=== PATIENT | male | born 1970 | race Caucasian/White ===

== ENCOUNTER 2017-03-04 14:41 | Emergency (ER) | payer OTHER ==
[~2017-03-04] VITALS: Ht 172.7 cm; Wt 93.5 kg
[2017-03-04 14:43] VITALS: Ht 172.7 cm; Wt 93.5 kg
[2017-03-04] MEDS ORDERED: KETOROLAC 30 MG INJ IV STA (15:16)
[2017-03-04] MEDS ORDERED: ONDANSETRON 4 MG INJ IV STA (15:16)
[2017-03-04] MEDS ORDERED: SOD CHLORIDE 0.9% 1,000 ML IV STA (15:16)
[2017-03-04 16:00] LABS: ADD SCAN DIFF NO
[2017-03-04 16:06] LABS: BASOPHIL # 0.1 10^3/ul (0.0-0.1); BASOPHILS % 0.7 % (0.0-2.0); EOSINOPHILS # 0.1 10^3/ul (0.0-0.5); EOSINOPHILS % 2.1 % (0.0-7.0); HEMATOCRIT 44.1 % (42.0-52.0); LYMPHOCYTES # 2.1 10^3/ul (0.8-2.9); LYMPHOCYTES % 31.2 % (15.0-51.0); MEAN CORPUSCULAR HEMOGLOBIN 29.9 pg (29.0-33.0); MEAN CORPUSCULAR VOLUME 87.8 fl (82.0-101.0); MEAN PLATELET VOLUME 10.4 fl (7.4-10.4); MONOCYTE # 0.6 10^3/ul (0.3-0.9); NEUTROPHIL # 3.9 10^3/ul (1.6-7.5); NEUTROPHILS % 56.9 % (39.0-77.0); PLATELET COUNT 267 10^3/UL (140-415); RED BLOOD COUNT 5.02 10^6/ul (4.70-6.10); RED CELL DISTRIBUTION WIDTH 12.6 % (11.5-14.5); WHITE BLOOD COUNT 6.8 10^3/ul (4.8-10.8)
[2017-03-04 16:26] LABS: ALBUMIN 4.3 g/dl (3.3-4.9); ALBUMIN/GLOBULIN RATIO 1.22; BILIRUBIN,INDIRECT 0.2 mg/dl (0-1.1); BILIRUBIN,TOTAL 0.2 mg/dl (0.2-1.3); CALCIUM 8.9 mg/dl (8.4-10.2); CREATININE 0.74 mg/dl (0.61-1.24); POTASSIUM 3.9 mmol/L (3.5-5.1); TOTAL PROTEIN 7.8 g/dl (6.1-8.1)
[2017-03-04 16:31] LABS: ADD UMIC NO; URINE BILIRUBIN (Dip) NEGATIVE (NEGATIVE); URINE BLOOD (Dip) NEGATIVE (NEGATIVE); URINE COLOR LT. YELLOW (YELLOW); URINE GLUCOSE (Dip) NEGATIVE (NEGATIVE); URINE KETONES (Dip) NEGATIVE (NEGATIVE); URINE LEUKOCYTE ESTERASE (Dip) NEGATIVE (NEGATIVE); URINE NITRITE (Dip) NEGATIVE (NEGATIVE); URINE TOTAL PROTEIN (Dip) NEGATIVE (NEGATIVE); URINE UROBILINOGEN (Dip) 0.2 E.U./dL (0.1-1.0)
--- NOTE | 2017-03-04 16:43 | ERD ---
ER Documentation Chief Complaint Date/Time DATE: 03/04/17 TIME: 16:42 Chief Complaint EPIGASTRIC PAIN,VOMITING,DIARRHEA HPI 46-year-old male presents with epigastric pain that he has had for 3 days. No change with food. He does state he has a problem with alcohol but last drink on Thursday. Admits to nausea vomiting or diarrhea. He is however tolerating oral intake. Denies any dysuria, hematuria, increased urinary frequency, or flank pain. No fever. ROS All systems reviewed and are negative except as per history of present illness. Allergies Allergies: Coded Allergies: No Known Drug Allergy (Verified Allergy, Unknown, 03/04/17) PMhx/Soc Medical and Surgical Hx: pt denies Medical Hx, pt denies Surgical Hx Hx Alcohol Use: Yes Hx Substance Use: No Hx Tobacco Use: No Smoking Status: Never smoker FmHx Family History: No diabetes Physical Exam Vitals Vital Signs Date Time Temp Pulse Resp B/P Pulse Ox O2 Delivery O2 Flow Rate FiO2 03/04/17 14:43 97.9 80 18 133/85 98 Physical Exam General: well developed, well nourished, alert, nontoxic, no distress Head: normocephalic, atraumatic Eyes: PERRL, normal conjunctiva Neck: Supple, nontender, no lymphadenopathy, no midline tenderness Respiratory: Clear to auscaultation bilaterally, speaks in full sentences, no use of accesory muscles or labored breathing, no rales, ronchi, or wheezing Cardiovascular: RRR, No murmurs GI: soft, non tender, non distended, negative murphys sign, negative mcburneys point tenderness, no cva tenderness bilaterally, no rebound or guarding Back: no midline tenderness, no step offs or bony abnormalities, sensation to light touch in tact Result Diagram: 03/04/17 1540 03/04/17 1540 Results 24 hrs Laboratory Tests Test 03/04/17 15:40 White Blood Count 6.810^3/ul Red Blood Count 5.0210^6/ul Hemoglobin 15.0g/dl Hematocrit 44.1% Mean Corpuscular Volume 87.8fl Mean Corpuscular Hemoglobin 29.9pg Mean Corpuscular Hemoglobin Concent 34.0g/dl Red Cell Distribution Width 12.6% Platelet Count 90910^3/UL Mean Platelet Volume 10.4fl Neutrophils % 56.9% Lymphocytes % 31.2% Monocytes % 9.0% Eosinophils % 2.1% Basophils % 0.7% Nucleated Red Blood Cells % 0.0/100WBC Neutrophils # 3.910^3/ul Lymphocytes # 2.110^3/ul Monocytes # 0.610^3/ul Eosinophils # 0.110^3/ul Basophils # 0.110^3/ul Nucleated Red Blood Cells # 0.010^3/ul Sodium Level 139mmol/L Potassium Level 3.9mmol/L Chloride Level 107mmol/L Carbon Dioxide Level 25mmol/L Anion Gap 11 Blood Urea Nitrogen 8mg/dl Creatinine 0.74mg/dl Glucose Level 121mg/dl Calcium Level 8.9mg/dl Total Bilirubin 0.2mg/dl Direct Bilirubin 0.00mg/dl Indirect Bilirubin 0.2mg/dl Aspartate Amino Transf (AST/SGOT) 106IU/L Alanine Aminotransferase (ALT/SGPT) 97IU/L Alkaline Phosphatase 103IU/L Total Protein 7.8g/dl Albumin 4.3g/dl Globulin 3.50g/dl Albumin/Globulin Ratio 1.22 Lipase 56U/L Current Medications Medications (Trade) Dose Ordered Sig/Filippo Route PRN Reason Start Time Stop Time Status Last Admin Dose Admin Sodium Chloride (NS) 1,000 ml @ 1,000 mls/hr Q1H STAT IV 03/04/17 15:16 03/04/17 16:15 DC 03/04/17 15:49 Ondansetron HCl (Zofran Inj) 4 mg ONCE STAT IV 03/04/17 15:16 03/04/17 15:18 DC 03/04/17 15:50 Ketorolac Tromethamine (Toradol) 30 mg ONCE STAT IV 03/04/17 15:16 03/04/17 15:18 DC 03/04/17 15:50 Procedures/MDM Patient presents with abdominal pain. His exam is benign he has no tenderness throughout his abdomen. I doubt any emergent acute etiology. Furthermore his labs are unremarkable. He had good relief of his symptoms with IV medications that he is discharged. Recommended this patient follow up with her primary care doctor within 48 hours or return to the emergency room for any worsening of symptoms. However this time I do believe there is suitable for outpatient management. I answered all their questions and they agreed with the plan and were discharged home. Departure Diagnosis: Primary Impression: Abdominal pain Condition: Stable MIRYAM WILLIS PA-C Mar 04, 2017 16:43
[2017-03-04 17:07] VITALS: BP 134/68; PULSE 77; RESP 18
== END 2017-03-04 17:07 | disposition home or self-care (01) ==
LOC: FTE 14:41
DX: R10.13 Epigastric pain (principal); R11.2 Nausea with vomiting, unspecified
CPT/HCPCS: 80053; 81003; 83690; 85025; J1885; J2405; J7030; 36415; 96374; 96375